=== PATIENT | female | born 1985 | race Caucasian/White ===

== ENCOUNTER 2025-03-20 16:27 | Emergency (ER) | payer BC, SELFPAY ==
--- OUTSIDE RECORDS SUMMARY | 2025-03-20 16:34 | XMS_ITS | Clinical Summary ---
Author Organization [facility] Health Address [address] [place] [address] Care Team Providers Care Commissioning Engineer Name Role Phone Unavailable Primary Care Provider Unavailabl e Social History Tobacco Use Types Packs/Day Years Used Date Smoking Tobacco: Never Assessed Comments Unknown Sex and Gender Information Value Date Recorded Sex Assigned at Not on file Legal Sex Unknown 05/31/2020 9:03 PM PDT Gender Identity Not on file Sexual Orientation Not on file Plan of Treatment Not on file
--- OUTSIDE RECORDS SUMMARY | 2025-03-20 16:34 | XMS_ITS | Clinical Summary ---
Author Organization [facility] [employer] [address] [place] [address] [place] [address] [place] [address] Care Team Providers Care Manager Heavy Duty Name Role Phone Unavailable Primary Care Provider Unavailabl e Allergies Active Allergy Reactions Criticality Noted Date Comments Triamcinolone Acetonide Swelling Low 09/08/2018 Medications PNV no.133/ferrous fum/folic ( ORAL) Take by mouth. Active tobramycin-dexA METHasone (Tobradex) 0.3-0.1 % suspension Administer 1 Drop in left eye 3 times daily for 5 days. 5 mL 06/20/2022 3:26 PM CDT Active Social History Tobacco Use Types Packs/Day Years Used Date Smoking Tobacco: Never Estimated Date of Delivery Comme nts Yes 12/29/2018 Sex and Gender Information Value Date Recorded Sex Assigned at Not on file Legal Sex Female 1:33 PM PROVIDER NETWORK ANALYST Gender Identity Not on file Sexual Orientation Not on file Last Filed Vital Signs Vital Sign Reading Time Taken Comments Blood Pressure 110/60 09/08/2018 6:10 PM PROVIDER NETWORK ANALYST Pulse 80 09/08/2018 6:10 PM PROVIDER NETWORK ANALYST Temperature 36.6 C (97.8 F) 09/08/2018 6:10 PM PROVIDER NETWORK ANALYST Respiratory Rate 18 09/08/2018 6:10 PM PROVIDER NETWORK ANALYST Oxygen Saturation 100% 09/08/2018 6:10 PM PROVIDER NETWORK ANALYST Inhaled Oxygen Concentration - - Weight 109.8 kg (242 lb) 09/08/2018 6:10 PM PROVIDER NETWORK ANALYST Height 170.2 cm (5' 7) 07/18/2018 1:56 PM PROVIDER NETWORK ANALYST Body Mass Index 37.9 07/18/2018 1:56 PM PROVIDER NETWORK ANALYST Plan of Treatment Health Maintenance Due Date Last Done Comments DTAP/TDAP/TD VACCINES (1 - Tdap) 2004 HEPATITIS B VACCINES (1 of 3 - 19+ 3-dose series) 2004 HPV/Cotest (21-29) 2006 CERVICAL CANCER SCREENING 11/20/2015 HPV/Cotest (30-65) 11/20/2015 PAP SMEAR 11/20/2015 INFLUENZA VACCINE (#1) 2025 RSV VACCINE (60+ or ) (1 - 1-dose 75+ series) 2060 HPV VACCINES Aged Out No longer eligi ble based on patient's age to complete this topic Insurance [facility] OPEN ACCESS HMO RX [facility] [employer]
--- OUTSIDE RECORDS SUMMARY | 2025-03-20 16:34 | XMS_ITS | Clinical Summary ---
Author Organization [facility] [place] Address [address] [place] [address] Care Team Providers Care Cooler Supervisor Name Role Phone [facility], [facility] Primary C are Provider Source Comments [facility],non-owned Affiliates and Associated Physician Practices is amultiple site organization consisting of ambulatory clinics and hospital sitesin [place], [place], [place] and [place]. This disclosure is being madepursuant to the Care Everywhere program and may not contain all information available regarding this patient. Last updated 18.[facility] Allergies No known active allergies Medications * This document contains information received from the source organization and may not represent a complete record from that organization. * Be aware that medications may not be up to date on this document. Alwaysverify current medications with the patient. clobetasol (Temovate) 0.05 % ointment Apply to affected area every 7 days 60 g 4 06/04/2023 Active methylphenidate (Ritalin) 10 MG tablet Take 1 (one) tablet by mouth once daily Active Cholecalciferol 1.25 MG (83952 UT) Take 50,000 Units by mouth every 7 days 12 capsule 10/12/2023 Active Active Problems Problem Noted Date Diagnosed Date Major depressive disorder, recurrent, unspecifie d 06/03/2024 Gastroesophageal reflux disease 06/03/2023 06/03/2023 Dehydration 10/10/2022 Morbid obesity 09/30/2022 Allergic rhinitis 05/30/2022 Overview (05/30/2022): not well controlled on the claritin - will switch to zyrtec - advised otc cough drops ok. follow up if things worsen. 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 Pain 05/30/2022 Neuralgia, neuritis or radiculitis 05/30/2022 Lesion of ulnar nerve, left upper limb Hyperopia 05/30/2022 Overview (05/30/2022): Computer Rx Hyperlipidemia 05/30/2022 Cubital tunnel syndrome 05/30/2022 Vaginal low risk human papil lomavirus (HPV) DNA test positive 05/30/2022 Triceps tendinitis 05/30/2022 Medial epicondylitis 05/30/2022 Lateral epicondylitis 05/30/2022 Phase of life problem 05/30/2022 Polyhydramnios, antepartum complication 12/15/19 , incidental 12/03/2018 Supervision of high-risk of young enrike igravida 11/16/2018 Complication, , third trimester 019 Resolved Problems Problem Noted Date Diagnosed Date Resolved Date Anxiety and depression 10/04/201801/31 Overview (10/19/2018): On Lexapro prior to Currently declines medication Agrees to counseling (ordered 2/5) Increased risk PP depression Assessment & Plan (11/09/2018 9:52 AM FREEZER WORKER): Coping well Plan: Monitor for development of depression Insulin controlled gestation al diabetes mellitus (GDM) in third trimester 10/04/20182018 Overview (11/09/2018): NPH HS Assessment & Plan (11/09/2018 9:52 AM FREEZER WORKER): Fasting blood glucose still above goal growth 10/19/18: 1672gm (74%tile) Plan: Maternal- Medicine to comanage diabetes New insulin regimen: NPH 56 units q.h.s. Perform at least 4 times daily blood glucose measurements Serial growth ultrasounds every 3-4wks--last assessment at 38 weeks to determine mode of delivery Twice weekly NSTs w/ wkly BPP at 32wks Delivery initiation between 39-40 weeks Would benefit from weight reduction diabetes testing 4-5 weeks at the delivery with review at 6 week visit Obesity affecting in third trimester 10/04/2018 01/31/2019 Overview (10/18/2018): A total weight gain (TWG) of 11-20 lbs is recommended this Encouraged to continue ADA meal plan, walk x20min after meals Assessment & Plan (11/09/2018 9:53 AM FREEZER WORKER): 10 lb weight gain since stated pre weight Immunizations Immunization Administration Dates Next Due INFLUENZA VACCINE, TRIV. (AF LURIA, FLUZONE TRIVALENT; 6MO+) (IIV3) 08/22/2013 FLU VACCINE QUAD IIV4 SPLIT 0.25 ML IM 6 FLU VACCINE TRI IIV3 SPLIT PF IM (FLUVIRIN) 05/17 HEP A/HEP B 12/06/2004 Human Papilloma Virus Quadrivalent Vaccine 09/18 INFLUENZA A A1G4-00 VACCINE 09/21/2009 INFLUENZA VACCINE 05/25/2012 INFLUENZA VACCINE, QUADR. (A FLURIA, FLUZONE QUADRIVALENT; 6MO+) (IIV4) 06/27/2010 INFLUENZA VACCINE, QUADR. (F LUZONE; FLULAVAL; FLUARIX; AFLURIA QUADRIVALENT; 6MO+), 0.5 ML (IIV4) 06/04/2022,10/31/2020 ISABELLE VACCINE QUAD LAIV4 PF NASAL 06/07/2014 MENINGOCOCAL MENINGITIS 04/26/2004 POLIO IPV 04/26/2004 TDAP (7yrs+) 10/04/2018,03/16/2012 TYPHOID IM 09/18/2010 Td (Adult), 2 Lf Tetanus Toxoid, Adsorbed, Pf Family History Medical History Relation Name Comments Cancer - Other Father Autoimmune Disease Mother Alzheimer's Disease Paternal Grandfather Autoimmune Disease Sister Relation Name Status Comments Father Alive Mother Alive Paternal Grandfather Paternal Grandmother Sister Alive Social History Tobacco Use Types Packs/Day Years Used Date Smoking Tobacco: Former Cigarettes Smokeless Tobacco: Never Tobacco Cessation:Counseling Given: Not Answered Alcohol Use Standard Drinks/Week Comments Yes 0 (1 standard drink = 0.6 oz pur e alcohol) social Overall Financial Resource Strain (CARDIA) Answe r Date Recorded How hard is it for you to pa y for the very basics like food, housing, medical care, and heating? Not hard at all 09/30/2022 PHQ-2 Answer Date Recorded Patient Health Questionnaire-2 Score 0 06/04/2023 [facility] - Occupational Stress Questionnaire Answer Date Recorded Do you feel stress - tense, restless, nervous, or anxious, or unable to sleep at night because your mind is troubled all the time - these days? Not at all 09/30/2022 Hunger Vital Sign Answer Date Recorded Within the past 12 months, y ou worried that your food would run out before you got the money to buy more. Never true 09/30/19 23 Within the past 12 months, t he food you bought just didn't last and you didn't have money to get more. Never true 09/30/2022 PRAPARE - Transportation Answer Date Re corded In the past 12 months, has l ack of transportation kept you from medical appointments or from getting medications? No 09/14 In the past 12 months, has l ack of transportation kept you from meetings, work, or from getting things needed for daily living? No 09/30/2022 Housing Stability Vital Sign Answer Jimmie e Recorded In the last 12 months, was t here a time when you were not able to pay the mortgage or rent on time? No 09/30/2022 In the last 12 months, how many places have you lived? 1 09/30/2022 In the last 12 months, was t here a time when you did not have a steady place to sleep or slept in a mcfp (including now)? No 09/30/2022 Comments No Sex and Gender Information Value Date Recorded Sex Assigned at Not on file Legal Sex Female 1:50 PM CDT Gender Identity Not on file Sexual Orientation Not on file Last Filed Vital Signs Vital Sign Reading Time Taken Comments Blood Pressure 104/82 10/01/2023 2:33 PM FREEZER WORKER Pulse 76 10/01/2023 2:33 PM FREEZER WORKER Temperature 36.4 C (97.6 F) 10/01/2023 2:33 PM FREEZER WORKER Respiratory Rate 16 10/10/2022 12:00 PM FREEZER WORKER Oxygen Saturation 98% 10/01/2023 2:33 PM FREEZER WORKER Inhaled Oxygen Concentration - - Weight 79.8 kg (176 lb) 10/01/2023 2:33 PM FREEZER WORKER Height 165.1 cm (5' 5) 10/01/2023 2:33 PM FREEZER WORKER Body Mass Index 29.29 10/01/2023 2:33 PM FREEZER WORKER Plan of Treatment Health Maintenance Due Date Last Done Comments HEPATITIS C SCREENING 11/15/2003 HEPATITIS B VACCINE (2 of 3 - Hep B Twinrix 3-dose series) 01/03/2005 12/06/2004 HPV VACCINE (2 - 3-dose series) 10/16/2010 09/18/2010 COVID-19 VACCINE (3 - season) 2024 05/30/2021, 04/04/2021 DEPRESSION SCREENING 09/14/2024 06/04/2023 INFLUENZA VACCINE (#1) 2025 , 05/15/2022, 10/31/2020, Additional history exists PAP with HPV 06/03/2026 06/03/2021, 08/04/2019, 05/24/2018 DTAP/TDAP/TD VACCINES (4 - Td or Tdap) 10/04/2028 10/04/2018, 03/16/2012, 04/26/2004 ZOSTER VACCINE (1 of 2) 11/20/2035 MENINGOCOCCAL GROUPS A/C/Y/W VACCINE Completed 04/26/2004 HIV SCREENING Completed 05/24/2018 HIB VACCINE Aged Out No longer eligi ble based on patient's age to complete this topic MENINGOCOCCAL (Group B) VACCINE SHARED DECISION-MAKING Aged Out No longer eligible based on patient's age to complete this topic PNEUMOCOCCAL VACCINE Aged Out No long er eligible based on patient's age to complete this topic Procedures Procedure Name Priority Date/Time Associated Diagnosis Comments PAP IG LB +HPV APTIMA REFLEX 16,18/45 FOR HR POS Routine 06/03/2021 10:06 AM CDT Routine cervical smear HIV-1 HIV-2 ANTIGEN/ANTIBODY W RFLX Routine 05/24/2018 12:16 PM CDT Vaginal bleeding affecting early from Last 3 Months or Most Recently Relevant to Health Maintenance Results * PAP IG LB +HPV APTIMA REFLEX 16,18/45 FOR HR POS (06/03/2021 10:06 AM CDT) Diagnosis [facility] ACCOUNT BILL Comment:NEGATIVE FOR INTRAEP ITHELIAL LESION OR MALIGNANCY. Specimen Adequacy [facility] ACCOUNT BILL Comment: Satisfactory for evaluation. Endocervical and/or squamous metaplastic cells (endocervical component) are present. Areas of partially obscuring blood are present. Clinician Provided ICD10 [facility] ACCOUNT BILL Comment: Z01.419 Z12.4 Performed by [facility] ACCOUNT BILL Comment:Nora Flowers, Casket Liner (ASCP) Comment . [facility] ACCOUNT BILL Note [facility] ACCOUNT BILL Comment: The Pap smear is a screening test designed to aid in the detection of premalignant and malignant conditions of the uterine cervix. It is not a diagnostic procedure and should not be used as the sole means of detecting cervical cancer. Both false-positive and false-negative reports do occur. . IGLBP CPT Code Automation [facility] ACCOUNT BILL Comment: This liquid based ThinPrep(R) pap test was screened with the use of an image guided system. Human papillomavirus Aptima Negative Negative [facility] ACCOUNT BILL Comment: This nucleic acid amplification test detects fourteen high-risk HPV types (16,18,31,33,35,39,45,51,52,56,58,59,66,68) without differentiation. ENTIRE ENDOCERVIX / Unknown 06/03/2021 10:06 AM CDT 06/04/2021 Narrative [facility] ACCOUNT BILL - 06/06/2021 6:09 AM CDT Source.............Endocervix No. of containers..01 ThinPrep Vial Resulting Agency Comment Lab Testing performed at: [facility] [place] [id number] [place] Rubab Goldie MD LAB - PATHOLOGY/CYTOLOGY ORDERAB LES Final Result [facility] ACCOUNT BILL [address] [place] [address] * HIV-1 HIV-2 ANTIGEN/ANTIBODY W RFLX (05/24/2018 12:16 PM CDT) HIV Screen 4th Generation w Reflex Non Reactive Non Reactive [facility] INSURANCE BILL Blood BLOOD SPECIMEN / Unknown 05/24/2018 12:16 PM CDT 05/24/2018 Narrative Resulting Agency Comment [facility] [address] [facility] [id number] Myrna Amezcua MD LAB - SEROLOGY ORDERABLES Final Result [facility] INSURANCE BILL [address] [place] [address] from Last 3 Months or Most Recently Relevant to Health Maintenance Insurance [facility] Advance Directives * Full Code (Latest Code Status on File) Date Activated Date Inactivated Comments 09/30/2022 12:10 PM 10/01/2022 4:26 PM * Full Code Date Activated Date Inactivated Comments 12/22/2018 7:25 AM 12/24/2018 3:33 PM Care Teams Cooler Supervisor Relationship Specialty Start Date End Date [facility] [address] [place] [address] PCP - General 06/04/22
--- OUTSIDE RECORDS SUMMARY | 2025-03-20 16:34 | XMS_ITS | Encounter Summary ---
Author Organization [facility] Health Address [address] [place] [address] Care Team Providers Care Dipper Fish Name Role Phone Unavailable Primary Care Provider Unavailabl e Prior Encounters Date Type Department Care Team Description 10/03/2019 Converted 13x Documents [facility] [address] [place] [phone] <No scans attached> 10/03/2019 Converted 13x Documents [facility] [address] [place] [phone] <No scans attached> 10/03/2019 Converted 13x Documents [facility] [address] [place] [phone] <No scans attached> Plan of Treatment Not on file Visit Diagnoses Not on file
[2025-03-20 16:37] VITALS: BP 112/61; PULSE 57; RESP 18; TEMP 36.3; O2SAT 99
--- NOTE | 2025-03-20 16:51 | ED.GENADULT ---
HPI - General Adult General Chief complaint: Urogenital-Female Stated complaint: UTI History of Present Illness HPI narrative: Tracey retana is a 39-year-old female who presents today with complaints of having dysuria, lower suprapubic pain, and hematuria symptoms started yesterday she is concerned for urinary tract infection. She denies any fevers or chills. Denies flank pain. Related Data Allergies Allergy/AdvReac Type Severity Reaction Status Date / Time No Known Allergies Allergy Verified 03/20/25 16:44 Review of Systems Review of Systems: All systems reviewed & are unremarkable except as noted in HPI and below Exam Narrative: GENERAL: Well-appearing, well-nourished, and in no acute distress. HEAD: Normocephalic, atraumatic. EYES: PERRLA and EOMI. ENT: Nares clear, no rhinorrhea or epistaxis. Mucous membranes moist. Oropharynx without tonsillar hypertrophy exudate or other lesions. NECK: Supple. No adenopathy or masses. No carotid bruits or JVD CHEST: Clear to auscultation. No respiratory distress. No wheezes rales or rhonchi HEART: Regular rate and rhythm. No murmur heard. Normal peripheral pulses. ABDOMEN: no CVA tenderness EXTREMITIES: Normal range of motion. No edema. SKIN: Warm, dry, no rash. NEURO: No focal deficits. Alert and oriented x3. PSYCH: Normal mood and affect. Course Course Level of Care: Express Care Visit Vital Signs Vital signs: Vital Signs Temperature 36.3 C L 03/20/25 16:37 Pulse Rate 57 L 03/20/25 16:37 Respiratory Rate 18 03/20/25 16:37 Blood Pressure 112/61 03/20/25 16:37 Pulse Oximetry 99 03/20/25 16:37 Oxygen Delivery Room Air 03/20/25 16:37 Temperature 36.3 C L 03/20/25 16:37 Pulse Rate 57 L 03/20/25 16:37 Respiratory Rate 18 03/20/25 16:37 Blood Pressure 112/61 03/20/25 16:37 Pulse Oximetry 99 03/20/25 16:37 Oxygen Delivery Room Air 03/20/25 16:37 Medical Decision Making [facility] Narrative Medical decision making narrative: 39 year-old patient presenting with suprapubic pain and urinary symptoms consistent with UTI. Urinalysis is obtained and positive for signs of infection. Urine culture sent. test is negative.Patient started on cephalexin and strongly advised to return for any increasing or worsening pain, fevers or vomiting. They expressed understanding of instructions and is discharged in stable condition. Procedures: Pulse oximetry interpretation - not hypoxic. Review of medical records. DISPOSITION: Discharged home in stable condition. IMPRESSION: 1. Acute uncomplicated cystitis. Medical Records Medical records reviewed: Yes I reviewed the external patient's medical records. Vital Signs Vital Signs: Vital Signs Temperature 36.3 C L 03/20/25 16:37 Pulse Rate 57 L 03/20/25 16:37 Respiratory Rate 18 03/20/25 16:37 Blood Pressure 112/61 03/20/25 16:37 Pulse Oximetry 99 03/20/25 16:37 Oxygen Delivery Room Air 03/20/25 16:37 Temperature 36.3 C L 03/20/25 16:37 Pulse Rate 57 L 03/20/25 16:37 Respiratory Rate 18 03/20/25 16:37 Blood Pressure 112/61 03/20/25 16:37 Pulse Oximetry 99 03/20/25 16:37 Oxygen Delivery Room Air 03/20/25 16:37 Vitals reviewed by me Lab Data Lab results reviewed: Yes I reviewed the patient's lab results. Labs: Lab Results 03/20/25 Range/Units 16:58 POC Urine Color Yellow POC Urine Clarity Cloudy POC Urine pH 7.0 POC Ur Specif [place] 1.015 POC Urine Protein Negative (Negative) POC Ur Glucose (UA) Negative (Negative) POC Urine Ketones Negative (Negative) POC Urine Blood 3+ (Negative) POC Urine Nitrite Negative (Negative) POC Urine Bilirubin Negative (Negative) POC Urine Urobilinogen 0.2 POC U Leukocyte Esteras 1+ (Negative) Discharge Plan Discharge Clinical Impression: Urinary tract infection Qualifiers: Urinary tract infection type: acute cystitis Hematuria presence: with hematuria Qualified Code(s): N30.01 - Acute cystitis with hematuria Patient Disposition: Home Condition: Stable Instructions: Antibiotic Form, Urinary Tract Infection in Women (ED) Additional Instructions: Start the Cephalexin twice daily for 1 week for your urinary tract infection We also sent a urine culture to ensure we are treating you with the correct antibiotic, if you should need a different antibiotic you will be notified. Follow up with your PCP in 1 week to ensure you are improving If you develop severe flank pain/ abdominal pain/ vomiting then proceed to the ER Patient Language: Malaysian Prescriptions: New cephalexin 500 mg capsule 500 mg PO Q12H Qty: 14 0RF Follow-up/Referrals: [facility] [Primary Care Provider] - 1 Week Time of Disposition: 17:18
[2025-03-20 17:03] LABS: EDUAAPPEAR Cloudy; EDUABILI Negative (Negative); EDUABLOOD 3+ (Negative); EDUACOLOR1 Yellow; EDUAGLUCOSE Negative (Negative); EDUAKETONE Negative (Negative); EDUALEUKO 1+ (Negative); EDUANITRATE Negative (Negative); EDUAPH 7.0; EDUAPROTEIN Negative (Negative); EDUASPGRAVITY 1.015; EDUAUROBILI 0.2
[2025-03-20 17:23] LABS: BEDSIDEPREGUCG Negative (Negative)
== END 2025-03-20 17:35 | disposition home or self-care (01) ==
PROVIDERS: Emergency Provider Nurse Practitioner Family
DX: N30.01 Acute cystitis with hematuria (principal)
CPT/HCPCS: 81003; 81025; 87086; 87186; 99203; G0463

== ENCOUNTER 2025-08-23 17:02 | Emergency (ER) | payer OTHER, BC, SELFPAY ==
--- NOTE | ~2025-08-23 | CT_ITS ---
EXAMINATION: CT cervical spine wo con DATE: 08/23/2025 18:56 INDICATION: Trauma one week ago. Persistent pain. TECHNIQUE: Computed tomography (CT) of the cervical spine was performed without intravenous contrast. Automated exposure control and iterative reconstruction technique were employed. The dose-length product was 326.54 mGy-cm. COMPARISON: No prior imaging studies are available. FINDINGS: No acute fractures of the cervical vertebrae. No compromise of bony spinal canal or neural foramen due to trauma. Minimal degenerative disc changes at C3-4, C4-5 levels. Soft tissues do not show acute findings in the neck. IMPRESSION: 1. No acute abnormalities of C-spine due to trauma. Degenerative changes of mild degree at C3-4 and C4-5 levels. If clinical symptoms are significant and persistent MRI may be considered. Reviewed, dictated and finalized at location T. NTEER SERVICES SPECIALIST IMPRESSION: 1. No acute abnormalities of C-spine due to trauma. Degenerative changes of mil d degree at C3-4 and C4-5 levels. If clinical symptoms are significant and pers istent MRI may be considered.
[2025-08-23 17:07] VITALS: BP 117/76; PULSE 90; RESP 20; TEMP 36.8; O2SAT 100
[2025-08-23] MEDS: KETOROLAC 30 MG/ML VIAL (*BKC) 15 MG IM (20:04)
[2025-08-23] MEDS: LIDOCAINE 5% PATCH 1 PATCH TRANSDERM (20:04)
[2025-08-23] MEDS: diazePAM (*CRX) 5 MG TABLET PO (20:05)
--- NOTE | 2025-08-23 20:18 | ED.NECK ---
HPI - Neck Pain/Injury General Chief Complaint: Neck Pain/Injury Stated Complaint: neck pain Time Seen by Provider: 08/23/25 18:45 History of Present Illness HPI Narrative: Patient presenting here with neck pain, she slipped on ice and fell hurting her neck about 10 days ago, for for the last week has been having neck pain. Worse on the left side. Pain is nonradiating, no focal numbness or weakness. Related Data Allergies Allergy/AdvReac Type Severity Reaction Status Date / Time No Known Allergies Allergy Verified 03/20/25 16:44 Review of Systems Review of Systems: All systems reviewed & are unremarkable except as noted in HPI and below Exam Narrative: EXAMINATION OF ORGAN SYSTEMS/BODY AREAS: Constitutional: Vital signs per nursing GENERAL:No acute distress, non-toxic appearing. HEAD: Normal with no signs of head trauma. EYES: EOMI, conjunctiva normal ENT: Hearing grossly intact NECK: No midline tenderness LUNGS: Nonlabored breathing. HEART: Regular rate and rhythm ABD: Soft, nontender to palpation EXT: Normal range of motion SKIN: No rashes or lesions. NEURO: Alert. No gross focal sensory or strength deficits. Normal gait. PSYCH: Normal affect Course Vital Signs Vital signs: Vital Signs Temperature 98.2 F 08/23/25 17:07 Pulse Rate 90 08/23/25 17:07 Respiratory Rate 20 08/23/25 17:07 Blood Pressure 117/76 08/23/25 17:07 Pulse Oximetry 100 08/23/25 17:07 Temperature 98.2 F 08/23/25 17:07 Pulse Rate 90 08/23/25 17:07 Respiratory Rate 20 08/23/25 17:07 Blood Pressure 117/76 08/23/25 17:07 Pulse Oximetry 100 08/23/25 17:07 [facility] Narrative Medical decision making narrative: Patient fell in her her neck, has had some persistent pain worse with certain movements but no radiation, no neurologic deficits, no midline tenderness on my exam and she is well-appearing. She would like to have a CT, this is obtained and is negative for acute abnormalities. Will give medications here for symptoms and trial a course of steroids with return precautions and follow-up to spine surgery is needed Differential Diagnosis Differential Diagnosis: MSK/cervical strain, doubt fracture course spinal cord injury without radiculopathy or midline tenderness Imaging Data Radiologist's impression: ITS Impressions Cervical Spine CT 08/23/25 18:57 IMPRESSION: 1. No acute abnormalities of C-spine due to trauma. Degenerative changes of mild degree at C3-4 and C4-5 levels. If clinical symptoms are significant and persistent MRI may be considered. Discharge Plan Discharge Clinical Impression: Strain of neck muscle Patient Disposition: Home Condition: Stable Instructions: Cervical Sprain (ED) Additional Instructions: You can try the medications as prescribed, and follow the spine surgeon if you have any further issues especially if the pain runs down your arms, if you have new numbness or weakness or anything else concerning. Patient Language: American Prescriptions: New prednisone 20 mg tablet 40 mg PO DAILY 4 Days Qty: 8 0RF No Action cephalexin 500 mg capsule 500 mg PO Q12H Qty: 14 0RF cephalexin 500 mg capsule 500 mg PO Q12H Qty: 14 0RF Follow-up/Referrals: Viola Anthony MD [Physician, Neurosurgery] - 3 Days [facility] [Primary Care Provider, Medical]
--- OUTSIDE RECORDS SUMMARY | 2025-08-23 21:05 | XMS_ITS | Clinical Summary ---
Author Organization [facility] lin Address [address] [place] [address] Care Team Providers Care Rn Field Case Manager Name Role Phone Unavailable Primary Care Provider Unavailabl e Social History Tobacco Use Types Packs/Day Years Used Date Smoking Tobacco: Never Assessed Comments Unknown Sex and Gender Information Value Date Recorded Sex Assigned at Not on file Legal Sex Female 8:26 AM EST Gender Identity Not on file Sexual Orientation Not on file Plan of Treatment Not on file Medical Devices [place] [id number] [facility]
--- OUTSIDE RECORDS SUMMARY | 2025-08-23 21:05 | XMS_ITS | Clinical Summary ---
Author Organization [facility] Health Address [address] [place] [address] Care Team Providers Care Drug Safety Coordinator Name Role Phone Unavailable Primary Care Provider [...]
--- OUTSIDE RECORDS SUMMARY | 2025-08-23 21:05 | XMS_ITS | Encounter Summary ---
Author Organization [facility] Health Address [address] [place] [address] Care Team Providers Care Saxophone Player Name Role Phone Unavailable Primary Care Provider Unavailabl e Prior Encounters Date Type Department Care Team Description 10/03/2019 Converted 13x Documents [facility] [address] [place] [phone] <No scans attached> 10/03/2019 Converted 13x Documents Water [facility] [address] [place] [phone] <No scans attached> 10/03/2019 Converted 13x Documents Water [facility] [address] [place] [phone] <No scans attached> Plan of Treatment Not on file Visit Diagnoses Not on file
--- OUTSIDE RECORDS SUMMARY | 2025-08-23 21:05 | XMS_ITS | Clinical Summary ---
Author Organization [facility] [employer] Address [address] [place] [address] Care Team Providers Care Supervisor Mold Yard Name Role Phone [facility], [facility] Primary C are Provider Source Comments [facility],non-owned Affiliates and Associated Physician Practices is amultiple site organization consisting of ambulatory clinics and hospital sitesin [place], [place], [place] and [place]. This disclosure is being madepursuant to the Care Everywhere program and may not contain all information available regarding this patient. Last updated 18.[facility] [employer] Allergies No known active allergies Medications * [...] mouth once daily Active Cholecalciferol 1.25 MG (63708 UT) Take 50,000 Units by mouth every [...] depression Assessment & Plan (11/09/2018 9:52 AM INTER FOLD ROLL CUTTER): Coping well Plan: Monitor for development of depression Insulin controlled gestation al diabetes mellitus (GDM) in third trimester 10/04/20182018 Overview (11/09/2018): NPH HS Assessment & Plan (11/09/2018 9:52 AM INTER FOLD ROLL CUTTER): Fasting blood glucose still above goal growth [...] meals Assessment & Plan (11/09/2018 9:53 AM INTER FOLD ROLL CUTTER): 10 lb weight gain since stated pre weight Immunizations Immunization Administration Dates Next Due INFLUENZA VACCINE, TRIV. (AF LURIA, FLUZONE TRIVALENT; 6MO+) (IIV3) 08/22/2013 FLU VACCINE QUAD IIV4 SPLIT 0.25 ML IM 6 FLU VACCINE TRI IIV3 SPLIT PF IM (FLUVIRIN) 05/17 HEP A/HEP B 12/06/2004 Human Papilloma Virus Quadrivalent Vaccine 09/18 INFLUENZA A E1P2-59 VACCINE 09/21/2009 INFLUENZA VACCINE 05/25/2012 INFLUENZA VACCINE, [...] Recorded Patient Health Questionnaire-2 Score 0 06/04/2023 [facility]ational Stress Questionnaire Answer Date Recorded [...] place to sleep or slept in a half-way (including now)? No 09/30/2022 Comments No Sex and Gender Information Value Date Recorded Sex Assigned at Not on file Legal Sex Female 1:50 PM CDT Gender Identity Not on file Sexual Orientation Not on file Last Filed Vital Signs Vital Sign Reading Time Taken Comments Blood Pressure 104/82 10/01/2023 2:33 PM INTER FOLD ROLL CUTTER Pulse 76 10/01/2023 2:33 PM INTER FOLD ROLL CUTTER Temperature 36.4 C (97.6 F) 10/01/2023 2:33 PM INTER FOLD ROLL CUTTER Respiratory Rate 16 10/10/2022 12:00 PM INTER FOLD ROLL CUTTER Oxygen Saturation 98% 10/01/2023 2:33 PM INTER FOLD ROLL CUTTER Inhaled Oxygen Concentration - - Weight 79.8 kg (176 lb) 10/01/2023 2:33 PM INTER FOLD ROLL CUTTER Height 165.1 cm (5' 5) 10/01/2023 2:33 PM INTER FOLD ROLL CUTTER Body Mass Index 29.29 10/01/2023 2:33 PM INTER FOLD ROLL CUTTER Plan of Treatment Health Maintenance Due Date Last Done Comments HEPATITIS C SCREENING 11/15/2003 HEPATITIS B VACCINE (2 of 3 - Hep B Twinrix 3-dose series) 01/03/2005 12/06/2004 HPV VACCINE (2 - 3-dose series) 10/16/2010 09/18/2010 DEPRESSION SCREENING 09/14/2024 06/04/2023 COVID-19 VACCINE (3 - season) 2025 05/30/2021, 04/04/2021 INFLUENZA VACCINE (#1) 2025 , 05/15/2022, 10/31/2020, [...] Performed by [facility] ACCOUNT BILL Comment:Nora Flowers, Personnel Security Assistant (ASCP) Comment . [facility] ACCOUNT BILL Note [...] Resulting Agency Comment Lab Testing performed at: [facility] [place] [phone] [place] Rubab Goldie MD LAB - PATHOLOGY/CYTOLOGY ORDERAB LES Final Result [facility] ACCOUNT BILL [address] [place] [address] * HIV-1 HIV-2 ANTIGEN/ANTIBODY W RFLX (05/24/2018 12:16 PM CDT) HIV Screen 4th Generation w Reflex Non Reactive Non Reactive [facility] INSURANCE BILL Blood BLOOD SPECIMEN / Unknown 05/24/2018 12:16 PM CDT 05/24/2018 Narrative Resulting Agency Comment [facility] [place] [address] [phone] Myrna Amezcua MD LAB - SEROLOGY ORDERABLES Final Result [facility] INSURANCE BILL [address] [place] [address] from Last 3 Months or Most Recently Relevant to Health Maintenance Insurance [facility] Advance Directives * Full Code (Latest Code Status on File) Date Activated Date Inactivated Comments 09/30/2022 12:10 PM 10/01/2022 4:26 PM * Full Code Date Activated Date Inactivated Comments 12/22/2018 7:25 AM 12/24/2018 3:33 PM Care Teams Supervisor Mold Yard Relationship Specialty Start Date End Date [facility] [place] [address] PCP - General 06/04/22
--- OUTSIDE RECORDS SUMMARY | 2025-08-23 21:05 | XMS_ITS | Clinical Summary ---
Author Organization [facility] [address] [place] [address] [address] [facility] [place] [address] Care Team Providers Care Ms Sql Dba Name Role Phone Unavailable Primary Care Provider [...] on file Legal Sex Female 1:33 PM FINANCE PROFESSOR Gender Identity Not on file Sexual Orientation Not on file Last Filed Vital Signs Vital Sign Reading Time Taken Comments Blood Pressure 110/60 09/08/2018 6:10 PM FINANCE PROFESSOR Pulse 80 09/08/2018 6:10 PM FINANCE PROFESSOR Temperature 36.6 C (97.8 F) 09/08/2018 6:10 PM FINANCE PROFESSOR Respiratory Rate 18 09/08/2018 6:10 PM FINANCE PROFESSOR Oxygen Saturation 100% 09/08/2018 6:10 PM FINANCE PROFESSOR Inhaled Oxygen Concentration - - Weight 109.8 kg (242 lb) 09/08/2018 6:10 PM FINANCE PROFESSOR Height 170.2 cm (5' 7) 07/18/2018 1:56 PM FINANCE PROFESSOR Body Mass Index 37.9 07/18/2018 1:56 PM FINANCE PROFESSOR Plan of Treatment Health Maintenance Due Date Last Done Comments DTAP/TDAP/TD VACCINES (1 - Tdap) 2004 HEPATITIS B VACCINES (1 of 3 - 19+ 3-dose series) 04/2005 HPV/Cotest (21-29) 2006 CERVICAL CANCER SCREENING 11/20/2015 HPV/Cotest (30-65) 11/20/2015 PAP SMEAR 11/20/2015 INFLUENZA VACCINE (#1) 2025 RSV VACCINE (60+ or ) (1 - 1-dose 75+ series) 2060 HPV VACCINES (No Doses Required) Com[facility] [employer]
== END 2025-08-23 20:10 | disposition home or self-care (01) ==
PROVIDERS: Emergency Provider Emergency Medicine
DX: S16.1XXA Strain of muscle, fascia and tendon at neck level, initial encounter (principal); W00.0XXA Fall on same level due to ice and snow, initial encounter
CPT/HCPCS: 72125; 96372; 99284; A9270; J1885; J7512